=== PATIENT | female | born 1985 | race Caucasian/White ===

== ENCOUNTER 2019-01-04 16:40 | Emergency (ER) | payer BC ==
[2019-01-04 17:11] VITALS: BMI 32.5
--- NOTE | 2019-01-04 17:18 | OBHP ---
Datetime: 01/04/2019 17:12 IP Adm Impression: Term, intrauterine IP Admit Plan: Discharge home Admit Comment, IP Provider: at 39weeks decd fm from [place], no crxs, vb , lof+fm obhx 1 x c/s pmh de medcpnv all nkda psh c/s soch de nst 130 mod ambika ctg 1 a/p at 39weeks dec fm blood test c/s in am labor ins given Pelvic Type - PN: Adequate Extremities - PN: Normal Abdomen - PN: Normal Back - PN: Normal Breast - PN: Normal Lungs - PN: Normal Heart - PN: Normal Thyroid - PN: Normal Neurologic - PN: Normal HEENT - PN: Normal General - PN: Normal FHR - Baseline A Provider: 130 Contraction Comments Provider: none IP Hx Assessment: The History has been Reviewed and is Current EGA AdmitDate IP: 39.0 Vital Signs Provider: Reviewed; Within Normal Limits IP Chief Complaint: Decreased movement NICHD Variability Prov Fetus A: Moderate 6-25bpm NICHD Accel Fetus A IP Provider: 15X15 FHR Category Provider Fetus A: Category I Genitourinary Exam: Normal DTRs - PN: Normal
[2019-01-04 17:48] LABS: HEMOGLOBIN 10.6 g/dL (11.0-16.0); MEAN CELL VOLUME 79.3 fL (81.0-99.0); MEAN CORPUSCULAR HEMOGLOBIN 25.7 pg (27.0-31.0); MEAN CORPUSCULAR HGB CONC 32.4 g/dL (33.0-37.0); MEAN PLATELET VOLUME 11.1 fL (7.2-11.7); RBC 4.13 Mil/uL (3.80-5.20); RED CELL DISTRIBUTION WIDTH 14.9 % (11.5-14.5); WHITE BLOOD COUNT 8.1 K/uL (4.8-10.8)
[2019-01-04 18:01] LABS: SQUAMOUS EPITHIAL 40 /hpf (0-5); URINE AMORPHOUS SEDIMENT RARE /ul (<OCC); URINE BACTERIA FEW (<OCC); URINE BILIRUBIN NEGATIVE (NEGATIVE); URINE BLOOD NEGATIVE (NEGATIVE); URINE CLARITY Hazy (Clear); URINE COLOR Yellow (YELLOW); URINE GLUCOSE (UA) NORMAL (Normal); URINE LEUKOCYTE ESTERASE 3+ Leu/uL (Negative); URINE PROTEIN NEGATIVE (NEGATIVE); URINE UROBILINOGEN NORMAL mg/dL (0.2-1.0)
[2019-01-04 18:04] LABS: ALB/GLOB RATIO 1.3 (1.0-2.1); ALBUMIN 3.8 g/dL (3.5-5.0); ALT/SGPT 11 U/L (9-52); AST/SGOT 19 U/L (14-36); BLOOD UREA NITROGEN 8 mg/dL (7-17); GFR NON-AFRICAN AMERICAN > 60
== END 2019-01-04 17:36 | disposition home or self-care (01) ==
LOC: C.EROB 16:40
DX: O36.8130 Decreased fetal movements, third trimester, not applicable or unspecified (principal); Z3A.39 39 weeks gestation of pregnancy

== ENCOUNTER 2019-01-05 05:17 | Inpatient (IN) | payer BC ==
[2019-01-04 17:11] VITALS: BMI 32.5
[~2019-01-05 05:17] MED LIST: Lactated Ringer's 1,000 ML IV ONE; Sodium Citrate/Citric Acid 15 ml Sol PO ONE; cefOXitin IV 2 gm in Dextrose 2 GM/50 ML BAG IVPB ONE
--- NOTE | 2019-01-05 05:18 | OBADHP ---
Datetime: 01/05/2019 05:13 Admit Comment, IP Provider: at 39+weks here for repet c/s , no ctxs, v , lof+fm obhx 1 x c/s pmh de mede pmnv all nkda psh c/.s soch de a/p at 39weks for repeat c/s/breech admit to l_D NPO/IVF LABS PAIN MA CPONT JENNI AND EFM INFORMED CONSENT R/A/B Pelvic Type - PN: Adequate Extremities - PN: Normal Abdomen - PN: Normal Back - PN: Normal Breast - PN: Normal Lungs - PN: Normal Heart - PN: Normal Thyroid - PN: Normal Neurologic - PN: Normal HEENT - PN: Normal General - PN: Normal FHR - Baseline A Provider: 130 Contraction Comments Provider: one IP Hx Assessment: The History has been Reviewed and is Current IP Chief Complaint: Scheduled Section NICHD Variability Prov Fetus A: Moderate 6-25bpm NICHD Accel Fetus A IP Provider: 15X15 FHR Category Provider Fetus A: Category I Genitourinary Exam: Normal DTRs - PN: Normal EGA AdmitDate IP: 39.1 IP Adm Impression: Term, intrauterine IP Admit Plan: Admit to unit; Initiate Section protocol Datetime: 01/04/2019 17:12 Vital Signs Provider: Reviewed; Within Normal Limits
[2019-01-05] MEDS ORDERED: Oxycodone/Acetaminophen 5/325 mg Tab PO PRN (05:43)
[2019-01-05] MEDS ORDERED: Morphine 1 mg/ml preservative-free Inj(Duramorph) ONE (05:52)
[2019-01-05] MEDS ORDERED: Oxytocin 10 Units/ml Inj ONE (06:17)
[2019-01-05] MEDS ORDERED: ePHEDrine 50 mg/ml Inj ONE (06:39)
[2019-01-05] MEDS ORDERED: Phenylephrine 10 mg/ml Inj ONE (06:39)
[2019-01-05] MEDS: Simethicone 80 mg Chewtab PO SCH ×3 (14:26→21:32)
[2019-01-05] MEDS: Prenatal Multivit/Folic Acid/Iron Tab PO SCH (14:27)
[2019-01-06] MEDS: Oxycodone/Acetaminophen 5/325 mg Tab PO PRN ×3 (00:07→16:50)
[2019-01-06] MEDS ORDERED: Bisacodyl 5mg EC Tab PO ONE (05:44)
[2019-01-06 08:38] LABS: HEMOGLOBIN 10.3 g/dL (11.0-16.0); MEAN CELL VOLUME 79.4 fL (81.0-99.0); MEAN CORPUSCULAR HEMOGLOBIN 25.5 pg (27.0-31.0); MEAN CORPUSCULAR HGB CONC 32.2 g/dL (33.0-37.0); MEAN PLATELET VOLUME 10.8 fL (7.2-11.7); RBC 4.03 Mil/uL (3.80-5.20); RED CELL DISTRIBUTION WIDTH 14.8 % (11.5-14.5); WHITE BLOOD COUNT 10.5 K/uL (4.8-10.8)
[2019-01-06] MEDS: Simethicone 80 mg Chewtab PO SCH ×4 (09:48→23:00)
[2019-01-06] MEDS: Prenatal Multivit/Folic Acid/Iron Tab PO SCH (09:48)
[2019-01-06] MEDS ORDERED: Tdap Vaccine 0.5 ml Vial (10-64 yrs) IM ONE (10:17)
--- NOTE | 2019-01-06 11:15 | OBPPN ---
Datetime: 01/06/2019 10:56 PP Pain Prov: Within normal limits PP Nausea Prov: Denies PP Flatus Prov: No PP BM Prov: No PP Heart Prov: Normal PP Lungs Prov: Normal PP Abdomen/Uterus Prov: Normal PP Lochia Prov: Normal PP Extremities Prov: Normal PP C/S Incision Prov: Normal PP Comments Phys Exam Prov: Abdomen: Soft, non-tender, fundus is firm and slightly below the umbilic us. Incision is clean, dry and intact PP Impression Prov: Normal progression PP Plan Prov: Continue present management PP Progress Note Prov: Pt seen and examined at bedside. Patient has no acute complaints or issues. P atient's pain is well controlled. Patient denies any flatus or bowel movement but she is urinating wi thout any difficulties. Patient denies any symptoms of fever, chills, nausea, vomiting, excessive abd ominal pain or vaginal bleeding. Vital sign: WNL PE: WNL Labs: H/H is stable, please refer to SQMOS A/P: patient is POD #1 Patient is stable Continue with present management Encourage ambulation, hydration and Continue with pain control
[2019-01-07] MEDS: Oxycodone/Acetaminophen 5/325 mg Tab PO PRN ×2 (05:37→16:28)
[2019-01-07] MEDS: Prenatal Multivit/Folic Acid/Iron Tab PO SCH (09:06)
[2019-01-07] MEDS: Simethicone 80 mg Chewtab PO SCH ×5 (09:06→21:58)
[2019-01-08 00:34] VITALS: RESP 20; O2SAT 99
[2019-01-08] MEDS: Oxycodone/Acetaminophen 5/325 mg Tab PO PRN (05:09)
[2019-01-08 08:03] VITALS: BP 133/88; PULSE 88; TEMP 98.6
[2019-01-08] MEDS: Simethicone 80 mg Chewtab PO SCH (09:39)
[2019-01-08] MEDS: Prenatal Multivit/Folic Acid/Iron Tab PO SCH (09:39)
--- NOTE | 2019-01-09 17:16 | OBDS ---
DELIVERY PERSONNEL Delivery Doctor: Klaus Partida MD Scrub Nurse: Kat Hutchison OBT Senior Process Engineer: Kayla Lopez RN Anesthesiologist: DR SHEPHERD MATERNAL INFORMATION Delivery Anesthesia: Spinal Medications in Delivery: PITOCIN 20 UNITS IN LR Estimated Blood Loss (ml): 700 Placenta Cultured: Yes Maternal Complications: None Provider Comments: dr south berrios in breezy. end clean 9/9 no com cord gas send LABOR SUMMARY EDC: 01/11/2019 00:00 No. Babies in Womb: 1 Attempted: No LABOR INFORMATION Group B Beta Strep: Negative Steroids Given: None MEMBRANES Membranes Rupture Method: Artificial Rupture of Membranes: 01/05/2019 06:19 Length of Rupture (hrs): 0.02 Amniotic Fluid Color: Clear Amniotic Fluid Amount: Moderate Amniotic Fluid Odor: Normal STAGES OF LABOR Stage 3 hrs: 0 Stage 3 min: 1 VAGINAL DELIVERY Episiotomy: None CSECTION DELIVERY Primary Indication: Repeat Elective Secondary Indication: Repeat Elective CSection Urgency: Elective CSection Incidence: Repeat Labor: N/A Elective: Elective CSection Incision: Lower Uterine Transverse BABY A INFORMATION Infant Delivery Date/Time: 01/05/2019 06:20 Method of Delivery: Born in Route : No : N/A Forceps: N/A Vacuum Extraction: N/A Shoulder Dystocia : No SHOULDER DYSTOCIA BABY A Delivery Date/Time: 01/05/2019 06:20 PRESENTATION/POSITION BABY A Presentation: Cephalic Cephalic Presentation: Vertex Vertex Position: Left Occipital Anterior Breech Presentation: N/A PLACENTA INFORMATION BABY A Placenta Delivery Time : 01/05/2019 06:21 Placenta Method of Delivery: Manual Removal Placenta Status: Delivered SCORES BABY A Heart Rate 1 min: >100 bpm Resp Effort 1 min: Good Cry Reflex Irritability 1 min: Cough or Sneeze or Pulls Away Muscle Tone 1 min: Active Motion Color 1 min: Body Running Water, Extremities Blue SCORE 1 MIN: 9 Heart Rate 5 min: >100 bpm Resp Effort 5 min: Good Cry Reflex Irritability 5 min: Cough or Sneeze or Pulls Away Muscle Tone 5 min: Active Motion Color 5 min: Body Running Water, Extremities Blue SCORE 5 MIN: 9 INFORMATION BABY A Gestational Age at Delivery: 39.1 Gestational Status: Term Infant Outcome : Liveborn Condition : Stable Sex: Female IDENTIFICATION/MEDS BABY A ID Band Number: [id number] ID Band Location: Left Leg; Left Arm Sensor Applied: Yes Sensor Number: [id number] Sensor Location : Cord Clamp Vitamin K Given : Aquamephyton 1 mg IM; Left Thigh Erythromycin Given: Given Both Eyes WEIGHT/LENGTH BABY A Infant Birthweight (gms): 3420 Weight (lb): 7 Weight (oz): 9 Length Inches: 19.00 Infant Length cms: 48.3 CORD INFORMATION BABY A No. Cord Vessels: 3 Nuchal Cord : N/A Cord Blood Taken: Yes Infant Suction: Mouth; Nose ASSESSMENT BABY A Complications: None Physical Findings at Delivery: Within Normal Limits Respirations: Appears Normal Container Maker/ALS Called : No Care By: DR YEUNG
--- NOTE | 2019-01-09 17:16 | OBDCSUM ---
Datetime: 01/08/2019 10:47 Discharge Diagnosis, Provider: Term Delivered Discharge Diagnosis Prov Other: s/p c/s
--- NOTE | 2019-01-09 17:19 | CP.PCM.DIS ---
Provider - Provider Date of Admission: 01/05/19 05:17 Attending physician: Klaus Partida MD Consults: 01/05/19 05:12 Anesthesiology Consult Routine Comment: c/s Consulting Provider: Sarwat Lorenz Consulting Physician: Sarwat Lorenz Reason for Consult: c/s Time Spent in preparation of Discharge (in minutes): 30 Diagnosis - Discharge Diagnosis (1) S/P repeat low transverse Status: Acute (2) Breech malpresentation successfully converted to cephalic presentation Status: Acute Hospital Course - Lab Results Lab Results: Most Recent Lab Values WBC 10.5 K/uL (4.8-10.8) 01/06/19 08:33 RBC 4.03 Mil/uL (3.80-5.20) 01/06/19 08:33 Hgb 10.3 g/dL (11.0-16.0) L 01/06/19 08:33 Hct 32.0 % (34.0-47.0) L 01/06/19 08:33 MCV 79.4 fL (81.0-99.0) L 01/06/19 08:33 MCH 25.5 pg (27.0-31.0) L 01/06/19 08:33 MCHC 32.2 g/dL (33.0-37.0) L 01/06/19 08:33 RDW 14.8 % (11.5-14.5) H 01/06/19 08:33 Plt Count 187 K/uL (130-400) 01/06/19 08:33 MPV 10.8 fL (7.2-11.7) 01/06/19 08:33 Discharge Exam - Head Exam Head Exam: ATRAUMATIC, NORMAL INSPECTION, NORMOCEPHALIC - Eye Exam Eye Exam: EOMI, Normal appearance, PERRL Pupil Exam: NORMAL ACCOMODATION, PERRL - GI/Abdominal Exam GI & Abdominal Exam: Normal Bowel Sounds - Rectal Exam Rectal Exam: NORMAL INSPECTION - Exam Exam: Circumcision, NORMAL INSPECTION External exam: NORMAL EXTERNAL EXAM Speculum exam: NORMAL SPECULUM EXAM Bimanual exam: NORMAL BIMANUAL EXAM - Neurological Exam Neurological exam: Alert, CN II-XII Intact, Normal Gait, Oriented x3, Reflexes Normal - Psychiatric Exam Psychiatric exam: Normal Affect, Normal Mood - Skin Skin Exam: Dry, Intact, Normal Color, Warm Discharge Plan - Discharge Medications Prescriptions: Ibuprofen [Motrin Tab] 600 mg PO Q6H PRN #15 tab PRN Reason: Pain, Mild (1-3) oxyCODONE/Acetaminophen [Percocet 5/325 mg Tab] 1 tab PO Q4H PRN #20 tab PRN Reason: Pain, Moderate (4-7) - Follow Up Plan Condition: GOOD Disposition: HOME/ ROUTINE Instructions: Sudden Infant Syndrome (SIDS), Depression, Jaundice in Babies, Reducing the Risk of Sudden Syndrome, Safety Tips for Sleeping Babies, Shaken Baby Syndrome , Surgical Wound (DC), Breast Care for the Woman, , Common Problems, What to Watch for After You Have a Baby
--- NOTE | 2019-01-10 05:16 | OP ---
PROCEDURE DATE: 01/05/2019 PREOPERATIVE DIAGNOSIS: A 33-year-old 2, para 1, 39 weeks and 1 day with a breech presentation for repeat section. POSTOPERATIVE DIAGNOSIS: A 33-year-old 2, para 1, 39 weeks and 1 day with a breech presentation for repeat section. SURGEON: Klaus Partida MD NECKTIE OPERATOR POCKETS AND PIECES: Michael Owens MD, who was present throughout the surgery. COMPLICATIONS: None. PROCEDURE PERFORMED: Repeat section. ANESTHESIA: Spinal anesthesia. ANESTHESIOLOGIST: Dr. Sarwat Lorenz. ESTIMATED BLOOD LOSS: 700 mL. DESCRIPTION OF THE PROCEDURE: After informed consent was obtained, the patient was brought to the operating room and placed on the table, where spinal anesthesia was given. Once the anesthesia was given, she was prepped and draped in normal sterile fashion. At the site of the previous skin incision, an incision was made with a knife, the subcutaneous tissue was cut with a Bovie, and the fascia was excised on both sides using curved Gutierrez scissors. The fascia was from the site of the umbilicus and then at the site of the rectus muscle. Rectus muscle was , the peritoneum was lifted up with two Allis scissors, and it was cut. We went into the abdominal cavity. Bladder blade was placed. Bladder flap was created. Lower uterine segment incision was made with a knife baby. Baby was delivered in a cephalic presentation. Cord was clamped, and baby was handed to the awaiting electronic musical instrument repairer. Placenta delivered manually and sent off for pathology. The uterus was exteriorized and cleared of all clots and debris. Uterine incision was closed using #0 Vicryl in running interlocking fashion. Second layer was closed with the same stitch. Cul-de-sac was cleared of all the clots and debris. The uterus was returned back to the abdominal cavity. Gutters were cleared of all the clots and debris. The uterine incision was looked and found to be hemostatic. No bleeding. After that, the peritoneum was closed using a 2-0 Vicryl in a running interlocking fashion. Muscle was closed using 2-0 Vicryl in running interlocking fashion. The fascia was closed using 1-0 Vicryl in running interlocking fashion. Subcutaneous tissue was closed in interrupted fashion. Skin was closed using 3-0 Monocryl straight needle. The patient tolerated the procedure well. Lap, sponge, and instrument counts were correct x2. Klaus Partida MD
== END 2019-01-08 10:44 | disposition home or self-care (01) | DRG 788 ==
LOC: C.4D 05:17 → C.4M 08:46
PROVIDERS: ADMIT Obstetrics & Gynecology; ATTEND Obstetrics & Gynecology
PROC: 10D00Z1 Extraction of Products of Conception, Low, Open Approach (ICD-10-PCS; principal; 2019-01-05)
DX: O32.1XX0 Maternal care for breech presentation, not applicable or unspecified (principal); O34.211 Maternal care for low transverse scar from previous cesarean delivery; Z3A.39 39 weeks gestation of pregnancy; Z37.0 Single live birth